=== PATIENT | male | born 1995 | race African-American/Black ===

== ENCOUNTER 2018-10-12 22:52 | Emergency (ER) | payer MEDICAID, SELFPAY ==
--- NOTE | 2018-10-12 23:59 | RAD ---
Exam: XR Finger(s) Rt Min 2 View HISTORY: Trauma to right small finger. COMPARISON: None FINDINGS: No evidence of a fracture or dislocation involving the right small finger. No other osseous abnormali ty is identified. IMPRESSION: No acute osseous abnormality is identified.
== END 2018-10-13 00:04 ==
LOC: MADERS 22:52
DX: S63.616A Unspecified sprain of right little finger, initial encounter (principal); W18.11XA Fall from or off toilet without subsequent striking against object, initial encounter

== ENCOUNTER 2020-12-25 17:21 | Emergency (ER) | payer OTHER, SELFPAY | END 2020-12-25 18:35 | LOC: MADERS 17:21 | DX: S62.251A Displaced fracture of neck of first metacarpal bone, right hand, initial encounter for closed fracture (principal); F17.210 Nicotine dependence, cigarettes, uncomplicated; W18.2XXA Fall in (into) shower or empty bathtub, initial encounter; Y92.149 Unspecified place in prison as the place of occurrence of the external cause | CPT/HCPCS: 26600 ==